=== PATIENT | female | born 1975 | race Caucasian/White ===

== ENCOUNTER 2016-04-29 08:56 | Outpatient (CLI) | payer OTHER ==
--- NOTE | 2016-04-29 10:34 | DIAGNOSTIC IMAGING REPORT ---
PROCEDURE: US OB RE-EVALUATION INDICATION: AGUSTÍN PLACENTA PLACEMENT TECHNIQUE: [place] scale, color and spectral Doppler images of the gravid uterus. COMPARISON: OB ultrasound 03/01/2016 FINDINGS: Single intrauterine with vertex presentation. Heart rate 152 bpm. Anterior placenta without previa. Normal closed cervix measures 4.4 cm. Stomach, kidneys and bladder are visualized. IMPRESSION: 1. Single live intrauterine with vertex presentation 2. Anterior placenta without previa
== END 2016-04-29 23:00 ==
LOC: US SRH 08:56
DX: Z34.90 Encounter for supervision of normal pregnancy, unspecified, unspecified trimester (principal); Z3A.00 Weeks of gestation of pregnancy not specified

== ENCOUNTER 2016-07-12 05:14 | Inpatient (IN) | payer OTHER ==
[~2016-07-12] VITALS: Ht 158.1 cm; Wt 111.1 kg
--- NOTE | 2016-07-12 13:40 | Progress Note ---
Subjective General Patient is with contiactions, comfortable. No acute issues. Physical Exam Vital Signs / I&Os afebrile, normotensive Pelvic VE 5cm/60%/-2 Other FHT: 120 and pos accels no decels LAB Results Laboratory Tests 07/12 0620 Hematology WBC (4.5 - 11.5 K/uL) 7.8 RBC (4.00 - 5.20 M/uL) 3.73 Hgb (12.0 - 16.0 gm/dL) 11.1 Hct (36.0 - 46.0 %) 33.0 MCV (80 - 100 fL) 89 MCH (26 - 34 pg) 30 RDW (11.6 - 14.8 %) 14.5 Neut % (Auto) (50 - 75 %) 76.4 Lymph % (Auto) (25 - 40 %) 18.2 Meagher % (Auto) (3 - 14 %) 4.2 Eos % (Auto) (0 - 4 %) 1.1 Baso % (Auto) (0 - 2 %) 0.1 Plt Count, EDTA (150 - 400 K/uL) 189 PUBS MCHC (31 - 37 g/dL) 34 Assessment and Plan Problem List 1. Labor established Plan SRJANINE pitbrian for rasheed on labor augmentation. expectant management.
--- NOTE | 2016-07-12 22:35 | Progress Note ---
Subjective General Patient is with continued issues of contractions. Is with minimal progression on cervical exam. Feels more pressure now. No fevers, no acute issues. Epidural doing well Physical Exam Vital Signs / I&Os BP - normotensive, T98.3 Pelvic VE- 7cm/80%/-2 Other FHT: 120 + acdels, no decels. LAB Results Laboratory Tests 07/12 0620 Hematology WBC (4.5 - 11.5 K/uL) 7.8 RBC (4.00 - 5.20 M/uL) 3.73 Hgb (12.0 - 16.0 gm/dL) 11.1 Hct (36.0 - 46.0 %) 33.0 MCV (80 - 100 fL) 89 MCH (26 - 34 pg) 30 RDW (11.6 - 14.8 %) 14.5 Neut % (Auto) (50 - 75 %) 76.4 Lymph % (Auto) (25 - 40 %) 18.2 Terrell % (Auto) (3 - 14 %) 4.2 Eos % (Auto) (0 - 4 %) 1.1 Baso % (Auto) (0 - 2 %) 0.1 Plt Count, EDTA (150 - 400 K/uL) 189 PUBS MCHC (31 - 37 g/dL) 34 Assessment and Plan Problem List 1. Labor established Plan Had SROM and pitosin, is making slow progress. IUPC placed at this time to the right side and will monitor on contractions. FHT reassuring at this time.
[2016-07-13] VITALS (9 sets, daily range): BP systolic 122–138; BP diastolic 58–74
--- NOTE | 2016-07-13 01:08 | Progress Note ---
Subjective General OA position, loose nuchal cord x 1, slight bleeiding post given cytotec; full note dictated.
--- NOTE | 2016-07-13 01:08 | Progress Note ---
Subjective General OA position, loose nuchal cord x 1, slight bleeiding post given cytotec; full note dictated.
--- NOTE | 2016-07-13 03:04 | DELIVERY SUMMARY ---
DELIVERY DATE: 07/12/2016 ATTENDING PHYSICIAN/PROVIDER: Ignacio Hicks MD PREPROCEDURE DIAGNOSES: 1. Intrauterine at term 2. Spontaneous rupture of membranes POSTPROCEDURE DIAGNOSES: 1. Intrauterine at term 2. Spontaneous rupture of membranes 3. Viable infant 4. Small bleed PROCEDURE PERFORMED: 1. Normal spontaneous vaginal delivery DELIVERY SUMMARY: The patient is a 41-year-old, G7, P5, who presented to labor and delivery with spontaneous rupture of membranes. She was given Pitocin and she desired an epidural. She had prolonged rupture of membranes over 12 hours without any significant contractions. She then had IUPC placed and started feeling much more pressure. She delivered at about 21 hours post rupture of membranes. She had an occiput anterior delivery. There was a loose nuchal cord x1, easily reduced. The baby was bulb suctioned on perineum and then delivered up to maternal abdomen where it had a great vigorous cry. Cord was clamped and cut and baby stayed with mom and placenta was delivered spontaneously intact. There were no lacerations. On , she had a little bit of bleeding which resolved with clearing clots from the uterus and vaginal region and also she was given 800 mcg Cytotec as well and baby and mom were both doing well .
[2016-07-14 00:30] VITALS: BP 131/71
[2016-07-14 06:00] VITALS: BP 136/67
--- NOTE | 2016-07-14 07:28 | Provider's Discharge Care Plan ---
Problem, Goal, Plan Problem List 1. Normal vaginal delivery Goals: Improved health/wellness Instructions: Routine care.
--- NOTE | 2016-07-14 07:28 | Provider's Discharge Care Plan ---
Problem, Goal, Plan Problem List 1. Normal vaginal delivery Goals: Improved health/wellness Instructions: Routine care.
[2016-07-14 08:00] VITALS: BP 137/76
[2016-07-14 13:40] VITALS: BP 136/84
[2016-07-14 16:15] VITALS: BP 134/62
== END 2016-07-14 18:20 | disposition home or self-care (01) | DRG 560 ==
LOC: OBC SRH 05:14 → OB SRH 05:19 → OBC SRH 05:42 → OB SRH 05:42
PROVIDERS: ADMIT Family Medicine
PROC: 10E0XZZ Delivery of Products of Conception, External Approach (ICD-10-PCS; principal; 2016-07-13)
DX: O42.02 Full-term premature rupture of membranes, onset of labor within 24 hours of rupture (principal); Z37.0 Single live birth; O69.81X0 Labor and delivery complicated by cord around neck, without compression, not applicable or unspecified; O72.1 Other immediate postpartum hemorrhage; O48.0 Post-term pregnancy; Z3A.40 40 weeks gestation of pregnancy
CPT/HCPCS: 40012; 81260; 90001; 90074; 90155; 91004; 91162; 91163; 95059